=== PATIENT | male | born 1970 | race Caucasian/White ===

== ENCOUNTER 2017-03-03 18:42 | Emergency (ER) | payer BC ==
[2017-03-03 18:50] VITALS: BP 173/102
--- NOTE | 2017-03-03 18:51 | ER Document Report ---
ED General - General Chief Complaint: S/S of Possible Stroke Stated Complaint: FACIAL AND HEAD NUMBNESS Time Seen by Provider: 03/03/17 18:49 Mode of Arrival: Ambulatory Information source: Patient TRAVEL OUTSIDE OF THE [place] IN LAST 30 DAYS: No - HPI Patient complains to provider of: Right facial numbness and drooping Onset: Yesterday Onset/Duration: Gradual Quality of pain: No pain Associated symptoms: None Exacerbated by: Denies Relieved by: Denies Similar symptoms previously: No Recently seen / treated by doctor: No Notes: Patient is a 46-year-old male presenting to the emergency room complaining of right-sided facial drooping and numbness that started yesterday, he denies any recent tick bites, no fevers, no illnesses, no history of similar symptoms previously, he denies any symptoms in the extremities - Related Data Allergies/Adverse Reactions: No Known Allergies Allergy (Unverified 03/03/17 18:49) Past Medical History - General Information source: Patient - Social History Smoking Status: Unknown if Ever Smoked Family History: Reviewed & Not Pertinent Renal/ Medical History: Denies: Hx Peritoneal Dialysis Review of Systems - Review of Systems Constitutional: No symptoms reported EENT: See HPI Cardiovascular: No symptoms reported Respiratory: No symptoms reported Gastrointestinal: No symptoms reported Genitourinary: No symptoms reported Male Genitourinary: No symptoms reported Musculoskeletal: No symptoms reported Skin: No symptoms reported Hematologic/Lymphatic: No symptoms reported Neurological/Psychological: See HPI -: Yes All other systems reviewed and negative Physical Exam - Vital signs Vitals: Temp Pulse Resp BP Pulse Ox 98.5 F 90 22 H 173/102 H 99 03/03/17 18:48 03/03/17 18:48 03/03/17 18:48 03/03/17 18:48 03/03/17 18:48 - Notes Notes: - General General appearance: Appears well, Alert In distress: None - HEENT Head: Normocephalic, Atraumatic Eyes: Normal Conjunctiva: Normal Extraocular movements intact: Yes Eyelashes: Normal Pupils: PERRL - Respiratory Respiratory status: No respiratory distress - Cardiovascular Rhythm: Regular - Abdominal Inspection: Normal - Back Back: Normal - Extremities General upper extremity: Normal inspection General lower extremity: Normal inspection - Neurological Neuro grossly intact: Yes Orientation: AAOx4 [place] Coma Scale Eye Opening: Spontaneous [place] Coma Scale Verbal: Oriented [place] Coma Scale Motor: Obeys Commands [place] Coma Scale Total: 15 - Psychological Associated symptoms: Normal affect, Normal mood - Skin Skin Temperature: Warm Skin Moisture: Dry Skin Color: Normal - Neurological Cranial nerves: Facial palsy, Other - Right-sided facial palsy which includes the eyebrow, decreased sensation to the right side of the face Course - Re-evaluation Re-evalutation: 03/03/17 18:56 Patient symptoms consistent with Traore's palsy, he was started on prednisone and valacyclovir, advised to follow-up with his doctor or return if symptoms worsen , patient acknowledges understanding and agreement with this plan - Vital Signs Vital signs: Temp Pulse Resp BP Pulse Ox 98.5 F 90 22 H 173/102 H 99 03/03/17 18:48 03/03/17 18:48 03/03/17 18:48 03/03/17 18:48 03/03/17 18:48 Discharge - Discharge Clinical Impression: Traore's palsy Condition: Stable Disposition: HOME, SELF-CARE Instructions: Traore's Palsy ([facility]), Steroid Medication Additional Instructions: Follow up with your primary care provider in one to 2 days. Return to the emergency room immediately if symptoms worsen or any additional concerns. Prescriptions: Prednisone 60 mg PO DAILY #21 tablet Valacyclovir HCl [Valacyclovir] 1,000 mg PO TID #30 tablet
== END 2017-03-03 18:55 | disposition home or self-care (01) ==
LOC: ER 18:42
DX: G51.0 Bell's palsy (principal); R20.0 Anesthesia of skin; R29.810 Facial weakness
CPT/HCPCS: 99284